=== PATIENT | female | born 1965 | race Caucasian/White ===

== ENCOUNTER 2020-05-16 17:43 | Emergency (ER) | payer BC, OTHER ==
[~2020-05-16] VITALS: Ht 157.5 cm; Wt 61.2 kg
[~2020-05-16 17:43] MED LIST: MULTIVITAMIN
--- NOTE | 2020-05-16 17:50 | Emergency Department Note ---
History of Present Illnes History of Present Illness History of Present Illness This is a 54 year old female RHD presents to the ED after punching left hand against punching bag .. Historian: Patient Arrival Mode: Car Onset (how long ago): hour(s) Progression: unchanged Context: Reports trauma/injury Relieving factors: immobilization, rest Exacerbating factors: movement Associated symptoms: Denies denies other symptoms, Denies confusion, Denies chest pain, Denies cough, Denies diaphoresis, Denies fever/chills, Denies headaches, Denies loss of appetite, Denies malaise, Denies nausea/vomiting, Denies rash, Denies seizure, Denies shortness of breath, Denies syncope, Denies weakness, Denies other Treatments prior to arrival: none Past Medical/Family History Physician Review I have reviewed the patient's past medical and family history. Any updates have been documented here. Past Medical History Recent Fever: No Clinical Suspicion of Infectio: No New/Unexplained Change in Ment: No Past Medical History: None Other Surgery: R shoulder sx Social History Smoking Cessation: Never Smoker Alcohol Use: None Any Illegal Drug Use: No Review of Systems Review of Systems Constitutional: Reports no symptoms EENTM: Reports no symptoms Cardiovascular: Reports no symptoms Respiratory: Reports no symptoms Gastrointestinal: Reports no symptoms Genitourinary: Reports no symptoms Musculoskeletal: Reports joint pain, Reports muscle pain Integumentary: Reports no symptoms Neurological: Reports no symptoms Psychological: Reports no symptoms Endocrine: Reports no symptoms Hematological/Lymphatic: Reports no symptoms Physical Exam Related Data Allergies: Coded Allergies: No Known Allergies (Unverified , 01/26/12) Vital signs reviewed: Yes Physical Exam CONSTITUTIONAL Constitutional: Present well-developed, Present well-nourished HENT HENT: Present normocephalic, Present atraumatic, Present oropharynx clear/moist, Present nose normal HENT L/R: Present left ext ear normal, Present right ext ear normal EYES Eyes: Reports PERRL, Reports conjunctivae normal NECK Neck: Present ROM normal PULMONARY Pulmonary: Present effort normal, Present breath sounds normal CARDIOVASCULAR Cardiovascular: Present regular rhythm, Present heart sounds normal, Present capillary refill normal, Present normal rate GASTROINTESTINAL Abdominal: Present soft, Present nontender, Present bowel sounds normal GENITOURINARY Genitourinary: Present exam deferred SKIN Skin: Present warm, Present dry MUSCULOSKELETAL Musculoskeletal: Present deformity (left wrist), Present tenderness (left wrist) NEUROLOGICAL Neurological: Present alert, Present oriented x 3, Present no gross motor or sensory deficits PSYCHOLOGICAL Psychological: Present mood/affect normal, Present judgement normal Results Imaging Imaging results reviewed: Yes Impressions [place] [id number] Patient Name: ISABELA HENRY MR #: [id number] : 1965 Age/Sex: 54/F Req #: [id number] Adm Physician: Ordered by: JANIS LIU DO Report #: [id number] Location: ER Room/Bed: Procedure: [id number] DX/FOREARM LEFT 2 VIEW Exam Date: 05/16/20 Exam Time: 1809 REPORT STATUS: Signed X-ray 2 views of the forearm. 3 views of the hand. HISTORY: Pain. COMPARISON: None available. FINDINGS: FOREARM: No acute fracture or dislocation. No focal soft tissue abnormality. HAND: No acute fracture or dislocation. No focal soft tissue abnormality. IMPRESSION: No acute radiographic abnormality of the forearm and hand. Signed by: Jorge Luis Wilcox MD on 05/16/2020 6:59 PM Dictated By: JORGE LUIS WILCOX MD 58 Transcribed By: POP on 05/16/201858 COPY TO: JANIS LIU DO~ Assessment & Plan Medical Decision Making MDM Diff Dx : sprain strain , fx, and dislocation Assessment & Plan Final Impression: (1) Left wrist sprain Depart Disposition: HOME, SELF-snf Meds Reported Medications [Multivitamin] No Conflict Check, DAILY 01/26/12 JANIS LIU DO May 16, 2020 17:50
--- OUTSIDE RECORDS SUMMARY | 2020-05-16 18:40 | XMS REPORT | Continuity of Care Document ---
Author Author [employer] Address Unknown Phone Unavailable Care Team Providers Care Safety Associate Name Role Phone [employer] Unavailable Un available Problems Problem Status Onset Date Classification Date Reported Comments Source Acute Pharyngitis Active 04/01/2013 [facility] Medications Medication Details Route Status Patient Instructions Ordering Provider Order Date Source Amoxicillin-Pot Clavulanate 500-125 MG Oral Tablet ; Start Date: 04/01/2013; End Date: (Active) Active 04/01/2013 [facility] Ibuprofen 200 MG Oral Capsule (Active) [facility] NyQuil LIQD (Active) Active [facility] Allergies, Adverse Reactions, Alerts No Known Medication Allergies Immunizations No Data Provided for This Section Results No Data Provided for This Section Pathology Reports No Data Provided for This Section Diagnostic Reports No Data Provided for This Section Consultation Notes No Data Provided for This Section Discharge Summaries No Data Provided for This Section History and Physicals No Data Provided for This Section Vital Signs No Data Provided for This Section Encounters Location Location Details Encounter Type Encounter Number Reason For Visit Attending Provider ADM Date DC Date Status Source AUDIT [id number] 04/01/2013 04/01/2013 [facility] Procedures No Data Provided for This Section Assessment and Plan No Data Provided for This Section Plan of Care No Data Provided for This Section Social History Social History Date Source Never A Smoker (Active) Being A Social Drinker (Active) Marital History - (Active) 04/01/2013 [facility] Family History Value Date S ource Paternal history of Hypertension (V17.49 ); (Active) Paternal grandmother's history of Breast Cancer (V16.3); (Active) Paternal aunt's history of Colon Cancer (V16.0); (Active) 04/01/2013 [facility] Advance Directives Order Name Results Value Date Source Advance Directives Advance Dir ectives No Advance Directives available. 04/01/2013 [facility] Functional Status No Data Provided for This Section
--- OUTSIDE RECORDS SUMMARY | 2020-05-16 18:40 | XMS REPORT | Clinical Summary ---
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 Name Role Phone PCP Unavailable Allergies Not on File Medications Not on file Active Problems Not on file Social History Date Tobacco Use Types Packs/Day Years Used Never Assessed Sex Assigned at Date Recorded Not on file Last Filed Vital Signs Not on file Plan of Treatment Health Maintenance Due Date Last Done Comments CERVICAL CANCER SCREENING 1986 BREAST CANCER SCREENING 10/20/2015 COLONOSCOPY SCREENING 10/20/2015 SHINGLES VACCINES (#1) 10/20/2015 INFLUENZA VACCINE 01/25/2020 Results Not on fileafter 05/16/2019 Advance Directives For more information, please contact: [phone] 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
--- NOTE | 2020-05-16 19:02 | Diagnostic Imaging Report ---
X-ray 2 views of the forearm. 3 views of the hand. HISTORY: Pain. COMPARISON: None available. FINDINGS: FOREARM: No acute fracture or dislocation. No focal soft tissue abnormality. HAND: No acute fracture or dislocation. No focal soft tissue abnormality. IMPRESSION: No acute radiographic abnormality of the forearm and hand. Signed by: Penelope Goldman MD on 05/16/2020 6:59 PM
== END 2020-05-16 18:44 | disposition home or self-care (01) ==
LOC: ER 18:37
DX: S63.502A Unspecified sprain of left wrist, initial encounter (principal); W21.89XA Striking against or struck by other sports equipment, initial encounter; Y93.71 Activity, boxing
CPT/HCPCS: 99283